=== PATIENT | male | born 1940 | race Caucasian/White ===

== ENCOUNTER 2017-06-09 13:09 | Outpatient (CLI) | payer MEDICARE, BC ==
--- NOTE | 2017-06-09 14:22 | RAD ---
PA AND LATERAL VIEWS OF CHEST: Date: 06/09/17 HISTORY: Dyspnea. FINDINGS: The heart size is normal. The aorta is tortuous. There are changes of COPD. No focal areas of consol idation, pneumothorax, or pleural effusions are seen. 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 IMPRESSION: No radiographic evidence of acute cardiopulmonary process. POS: [facility]
== END 2017-06-09 13:10 | disposition home or self-care (01) ==
LOC: RAD 13:09
PROVIDERS: ATTEND Internal Medicine
DX: R06.00 Dyspnea, unspecified (principal)
CPT/HCPCS: 71020

== ENCOUNTER 2017-07-09 13:37 | Outpatient (CLI) | payer MEDICARE, BC | END 2017-07-09 13:38 | disposition home or self-care (01) | LOC: CP 13:37 | PROVIDERS: ATTEND Internal Medicine | DX: R05 Cough (principal) | CPT/HCPCS: 94060; 94727; 94729 ==

== ENCOUNTER 2017-07-30 10:24 | Outpatient (CLI) | payer MEDICARE, BC ==
--- NOTE | 2017-07-30 11:57 | ULT ---
FOCUSED ULTRASOUND OF THE ABDOMINAL AORTA: Date: 07-30-17 History: 77-year-old male undergoing screening examination for abdominal aortic aneurysm. Technique: Multiplanar grayscale sonographic imaging of the abdominal aorta obtained. Abdominal aorta is assesse d with color flow and spectral analysis. FINDINGS: Portions of the abdominal aorta are obscured by bowel gas. The proximal abdominal aorta measures up to 1.9 cm in caliber. The mid abdominal aorta measures up to 2.1 cm in caliber and the distal abdominal aorta measures up to 1.9 cm in caliber. No sonographic ev idence for abdominal aortic aneurysm. IMPRESSION: No sonographic evidence of abdominal aortic aneurysm. POS: [facility]
== END 2017-07-30 10:25 | disposition home or self-care (01) ==
LOC: ULT 10:24
PROVIDERS: ATTEND Family Medicine
DX: Z00.00 Encounter for general adult medical examination without abnormal findings (principal)
CPT/HCPCS: 76775

== ENCOUNTER 2018-02-03 12:52 | Outpatient (CLI) | payer MEDICARE, BC | END 2018-02-03 12:53 | disposition home or self-care (01) | LOC: BICULT 12:52 | PROVIDERS: ATTEND Internal Medicine Nephrology | DX: N18.3 Chronic kidney disease, stage 3 (moderate) (principal) | CPT/HCPCS: 76770 ==

== ENCOUNTER 2025-03-03 15:22 | Outpatient (CLI) | payer MEDICARE | END 2025-03-03 15:23 | disposition home or self-care (01) | LOC: LABBT 15:22 → ULT 15:23 | PROVIDERS: ATTEND Family Medicine | DX: R22.42 Localized swelling, mass and lump, left lower limb (principal); R93.6 Abnormal findings on diagnostic imaging of limbs | CPT/HCPCS: 76999 ==